=== PATIENT | female | born 1995 | race African-American/Black ===

== ENCOUNTER 2022-12-13 00:46 | Day surgery (SDC) | payer BC, OTHER, MEDICAID, SELFPAY ==
--- NOTE | 2022-12-05 14:23 | PC.NURSE ---
Report to the Outpatient Waiting Room, entrance under the green pavilion located off [facility], at time _1130_ on date _12/13/22_. Planned Procedure Time: _1330___. Time changes happen often and if your time is changed the preop area will call you the afternoon before. - You and your visitor will be asked to self-screen and do not enter if you have any COVID symptoms. - Only one visitor is requested with a max of two and NO children visitors are allowed at this time. - The patient visitor may be requested to leave or wait in car when not with patient due to distancing restrictions. - A mask is optional within the hospital at this time. Patients may have clear liquids (water, carbonated beverages, clear teas, apple juice) until 3 hours prior to surgery with a maximum of 20 ounces. - No food from midnight until time of surgery - Infants may have breast milk until 4 hours before surgery, infant formula 6 hours prior to surgery. - Children will be allowed to drink immediately following surgery. If applicable, please bring a bottle or sippy cup to assist with drinking. Juice, water, soda, and popsicles are readily available. For infants on formula, please bring formula the day of surgery. Pacifiers are allowed. Take the following medications with a SIP of water the morning of surgery: _none____ DO NOT STOP ANY OF YOUR OTHER PRESCRIPTION MEDICATIONS PRIOR TO SURGERY ?EXCEPT THE FOLLOWING Medications to discontinue per physician __Supplements and vitamins 3 days prior_ Date to take last dose Please no make-up, nail belarusian, hairspray, perfume, deodorant, or body powder the day of surgery. No jewelry (including any body piercings) or valuables the day of surgery, leave them at home. Please take a shower or bath the night before, or the morning of, surgery with an antibacterial soap. Wear comfortable, loose fitting clothing. Children are encouraged to wear pajamas. - Jewelry must be removed prior to entering the operating room. Rings and piercings that are not removed may be cut off. - The hospital will not accept responsibility for valuables. - Please leave all valuables, including medications, at home the day of surgery. If you are going home after surgery, a licensed city driver must drive you home. - NO public transportation without another adult if you receive anesthesia. - We recommend that an adult stay with you for 24 hours following discharge. - We also recommend that you do not drive, make important decision, drink alcoholic beverages, or take any drugs that were not prescribed by your health care provider for at least 24 hours after your discharge time. For Pediatric surgeries, we recommend two adults accompany the child home. Follow any additional instructions given to you from your surgeon. If you or anyone in your household have experienced Covid symptoms in the past week, please notify your surgeon or the nurse liaison at the phone number below for possible testing. Telephone instructions given to _Patient__and asked if any additional questions and then verbalized understanding. Patient advised to call surgeon office or pre surgery nurse liaison [phone] if any additional questions.
[2022-12-05 14:32] VITALS: BMI 30.8
--- NOTE | 2022-12-12 15:10 | WPDANESEPPF ---
Anes - Initial Pre Proc Eval Procedure: Operation Date: 12/13/22 14:00 Proposed Procedures p CO2 Laser Destruction of Perineal Warts - Tristian Matta MD Date/Time: 12/12/22 15:10 Surgeon: Tristian Matta MD Pre Op Diagnosis: genital warts Patient Data Age: 27 Gender: F Height: 1.65 m Weight: 84 kg Allergies Allergy/AdvReac Type Severity Reaction Status Date / Time latex Allergy Mild Hives Verified 12/13/22 12:28 Pork/Porcine Containing Allergy Gastrointestinal Verified 12/13/22 12:28 Products Upset Home Medications Medication Instructions Recorded Confirmed Type desogestrel 0.15 mg-ethinyl 1 tablet PO DAILY #84 tabs 11/05/22 12/05/22 Rx estradiol 0.03 mg tablet (Isibloom) Patient hx anesthesia problems: none Family hx anesthesia problems: none Results Review: All pre-operative results and documents have been reviewed as part of the pre-operative evaluation. [facility] Past Medical History Medical History Encounter for gynecological examination Encounter for IUD insertion 10/10/16 Mirena insertion Encounter for IUD removal 07/16/17 Mirena removal Genital warts (12/13/14) Herpes Surgical History Surgical History H/O gastric sleeve (05/19/21) History of 07/30/15 primary c/s-- distress, maternal fever, lack of progress Manfred Family History Family History Father Diabetes mellitus Hypertension Mother Hypertension Grandparent Malignant tumor of pancreas maternal grandmother Diabetes mellitus paternal grandfather paternal grandmother Breast cancer paternal grandmother Other Breast cancer paternal aunt Social History Social History (Updated 11/05/22 @ 15:19 by Chen Casper CMA) Smoking status: Never smoker Alcohol intake: current Drinks per week: 2 Alcohol use details: Wine Substance use: never Substance use type: does not use Living arrangements: with family Additional living arrangements comments: son Occupation/Education: occupation Gender identity (if verbalized by the patient): Female Sexual Orientation (if Verbalized by the Patient): Straight or Heterosexual Spiritual care concerns: No Anes - Eval Final PreProcedure Day of Procedure 12/12/22 15:10 Patient weight: obese Heart: regular rate and rhythm Lungs: clear to auscultation and normal air movement Airway: Mallampati scale class II Neurological: alert and oriented Last oral intake: >/= 8 hours ASA classification: II Emergent: no Anesthetic plan: proceed Anesthesia type and monitoring: general GIVS and LMA Results Review: All pre-operative results and documents have been reviewed as part of the pre-operative evaluation. Informed Consent: The patient's anesthetic plan and its attendant risks and benefits were discussed with the patient/family/POA. Questions were solicited and answers provided to the satisfaction of the patient/family/POA.
--- NOTE | 2022-12-13 07:56 | PM.IMHP ---
H&P: HPI History of Present Illness Date/Time: 12/13/22 07:56 Chief Complaint: anogenital warts Narrative: 27-year-old female who presents for CO2 laser ablation of anogenital warts. Patient was found to have extensive in multifocal areas of anogenital warts. Given the extent of the lesion, recommended CO2 laser ablation versus topical or surgical therapy. Review of Systems Cardiovascular: Cardiovascular: Denies chest pain, Denies leg edema, Denies palpitations, Denies dyspnea and Denies dyspnea on exertion Respiratory: Respiratory: Denies cough, Denies dyspnea and Denies dyspnea on exertion Gastrointestinal: Gastrointestinal: Denies abdominal pain, Denies constipation, Denies diarrhea, Denies nausea and Denies vomiting Genitourinary: Genitourinary: Denies hematuria, Denies urinary frequency, Denies dysuria, Denies pelvic pain, Denies urinary incontinence and Denies vaginal discharge Neurologic: Reports system reviewed and no additional complaints, except as documented Psychiatric: Psychiatric: Reports no additional psychiatric complaints Endocrine: Endocrine: Denies palpitations PMFSH Past Medical History Medical History Encounter for gynecological examination Encounter for IUD insertion 10/10/16 Mirena insertion Encounter for IUD removal 07/16/17 Mirena removal Genital warts (12/13/14) Herpes Surgical History Surgical History H/O gastric sleeve (05/19/21) History of 07/30/15 primary c/s-- distress, maternal fever, lack of progress Manfred Family History Family History Father Diabetes mellitus Hypertension Mother Hypertension Grandparent Malignant tumor of pancreas maternal grandmother Diabetes mellitus paternal grandfather paternal grandmother Breast cancer paternal grandmother Other Breast cancer paternal aunt Social History Social History (Updated 11/05/22 @ 15:19 by Chen Casper CMA) Smoking status: Never smoker Alcohol intake: current Drinks per week: 2 Alcohol use details: Wine Substance use: never Substance use type: does not use Living arrangements: with family Additional living arrangements comments: son Occupation/Education: occupation Gender identity (if verbalized by the patient): Female Sexual Orientation (if Verbalized by the Patient): Straight or Heterosexual Spiritual care concerns: No Meds Home Medications and Allergies Home Medications Medication Instructions Recorded Confirmed Type desogestrel 0.15 mg-ethinyl 1 tablet PO DAILY #84 tabs 11/05/22 12/05/22 Rx estradiol 0.03 mg tablet (Isibloom) Allergies Allergy/AdvReac Type Severity Reaction Status Date / Time latex Allergy Mild Hives Verified 11/05/22 15:18 Pork/Porcine Containing Allergy Gastrointestinal Verified 12/05/22 14:14 Products Upset Exam Const: General: cooperative, healthy appearing and comfortable Neck: Neck: normal visual inspection Resp: Effort & Inspection: normal respiratory effort Auscultation: clear to auscultation bilaterally Cardio: Rate: regular rate Rhythm: regular rhythm GI: GI Palp: No abdominal tenderness and Yes Soft to palpation : External Female Exam: lesion ( Multifocal anogenital warts, noted on the labia minora and right buttock) Assessment and Plan Assessment and plan (1) Genital warts: Code(s): A63.0 - Anogenital (venereal) warts Status: Acute Assessment and Plan: 27-year-old female who presents for CO2 laser ablation of anogenital warts Patient noted to have extensive and multifocal areas of anogenital warts Largest lesion noted on the right buttock, there are multiple lesions in the labia minora Given extent of lesions, recommended CO2 laser therapy versus topical or surgical managem
--- NOTE | 2022-12-13 08:00 | WPDHPUPDATE1 ---
History and Physical Update Update Date/Time: 12/13/22 08:00 History and Physical has been reviewed, including an updated exam of the patient. There are NO changes in the patient's condition. Risks, benefits, and alternatives have been discussed and questions answered. Patient agrees to proceed with procedure.
[2022-12-13 11:45] VITALS: BP 109/79; PULSE 68; RESP 16; TEMP 36.4; O2SAT 100
[2022-12-13 11:50] VITALS: BMI 30.4
[2022-12-13] MEDS: LACTATED RINGERS 1,000 ML 30 ML IV CONT (13:05)
[2022-12-13] MEDS: LIDOCAINE HCL 1% LOCAL INJ 10 ML VIAL INFILTRATE (14:55)
--- NOTE | 2022-12-13 15:03 | W.PM.PROC2 ---
Procedure Note - Detailed Date of Procedure 12/13/22 Pre-op Diagnosis anogenital warts Post-op Diagnosis Same Procedure Performed CO2 laser ablation of anogenital warts Surgeon Tristian Matta MD Anesthesia General Indications multifocal anogential warts Findings multifocal extensive anogential wart cluster on the right buttock near the gluteal fold Description of Procedure The patient was taken to the OR and general anesthesia induced. She was prepped and draped in Yellow-fin stirrups with good supports of the back and bilateral lower extremities. I/O catheterization performed of the bladder. The above findings were noted: The area was marked with a 1 cm margin and the area infiltrated with 1% lidocaine. A small sample of the wart was removed with a 15 blade scalpel and sent for pathology. Using the CO2 laser at 12 W continuous, the lesions were ablated down to the subcutaneous fatty layer to ensure all epithelium was ablated. SSD cream was placed after the procedure to the affected area. The patient tolerated the procedure well. Sponge, lap, and needle counts were correct. The patient received no preoperative antimicrobial prophylaxis and had SCD's on throughout the case for VTE prophylaxis. The patient was taken to the recovery room in stable condition. Drains No Packing No Pathology Yes (anogenital wart) Complications No immediate complications Condition Stable Disposition PACU [facility] Billing Surgery - Charge Forward: Surgery Billing
[2022-12-13 15:08] VITALS: BP 108/74; PULSE 92; RESP 14; O2SAT 100
[2022-12-13 15:30] VITALS: BP 108/76; PULSE 70; RESP 14; O2SAT 100
[2022-12-13 16:00] VITALS: BP 110/70; PULSE 72; RESP 14
--- NOTE | 2022-12-13 16:31 | SUR.PHASEII ---
1625 PATIENT MEETS ANESTHESIA DISCHARGE CRITERIA. DRESSED & WAITING FOR A RIDE HOME.
== END 2022-12-13 17:13 | disposition home or self-care (01) ==
PROVIDERS: Visit Provider Student in an Organized Health Care Education/Training Program
PROC: (CPT 17110; principal; 2022-12-13 14:00)
DX: A63.0 Anogenital (venereal) warts (principal); B00.9 Herpesviral infection, unspecified; Z98.84 Bariatric surgery status; E66.9 Obesity, unspecified; Z68.30 Body mass index [BMI] 30.0-30.9, adult
CPT/HCPCS: 17110; 88304; A9270; J2250; J2704; J3010; J7120